=== PATIENT | female | born 1965 | race Caucasian/White ===

== ENCOUNTER 2023-02-05 21:31 | Emergency (ER) | payer OTHER, SELFPAY ==
--- NOTE | ~2023-02-05 | US_ITS ---
EXAMINATION: US VENOUS ULTRASOUND WITH DOPPLER LOWER EXTREMITY, LEFT CLINICAL INFORMATION: Popliteal Lau's cyst. COMPARISON: None available. TECHNIQUE: Ultrasound of the deep veins is performed from the hip to the calf with compression sonography and color and pulse Doppler assessment. Spectral analysis with color-flow imaging is performed. FINDINGS: There is normal venous compression and respiratory variation and augmented flow. The visualized common femoral vein, superficial femoral vein, profunda femoral vein, popliteal vein, and the trifurcation region shows no evidence of deep venous thrombosis. Small popliteal cyst measuring 1.7 x 0.6 x 1.5 cm. If the patient's symptoms persist, followup ultrasound in 5 days 7 days might be of value to exclude proximal propagation from a non-visualized calf vein. US/US venous duplex LE LT IMPRESSION: No DVT demonstrated in the left lower extremity. Small popliteal cyst.
--- NOTE | ~2023-02-05 | XR_ITS ---
EXAMINATION: XR KNEE, LEFT CLINICAL INFORMATION: Pain COMPARISON: None available. TECHNIQUE: Four views of the left knee. FINDINGS: Bones and soft tissues are normal. No fracture or joint effusion. Alignment is anatomic. Joint spaces are well maintained. No abnormal soft tissue calcification. Varicose veins throughout the soft tissues/subcutaneous fat. XR/XR knee LT 4V IMPRESSION: Normal left knee.
[2023-02-05 21:53] VITALS: BP 257/162; PULSE 89; RESP 20; TEMP 35.8; O2SAT 97; BMI 35.5
[2023-02-05 23:43] VITALS: RESP 17; TEMP 36.7
--- NOTE | 2023-02-05 23:49 | PC.NURSE ---
pt refusing repeat blood pressure. pt states i don't care what the blood pressure reading says i know its high because im in pain and it hurts like hell when it squeezes my arm pt telling this RN it is high every time i come to the ER pt yelling becoming agitated with staff for trying to recheck her BP. provider aware
--- NOTE | 2023-02-06 00:08 | ED_ITS ---
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 feels pain in the back of the knee in the popliteal area does have varicose veins no history of DVT on arrival patient's blood pressure was 257/162 patient refusing any medication or further evaluation knowing the risk Related Data Previous Rx's Medication Instructions Recorded amlodipine 10 mg tablet (Norvasc) 10 mg PO DAILY #90 tabs 02/06/23 ibuprofen 600 mg tablet 600 mg PO Q6H PRN fever or pain 02/06/23 #30 tabs lisinopril 20 1 tab PO DAILY #90 tabs 02/06/23 mg-hydrochlorothiazide 12.5 mg tablet (Zestoretic) Allergies Allergy/AdvReac Type Severity Reaction Status Date / Time erythromycin base Allergy Rash Verified 02/05/23 21:59 Review of Systems Review of Systems: Yes all other systems are reviewed and are negative [facility] Past Medical History Medical History (Updated 02/06/23 @ 02:00 by Mal Cuellar MD) Hypertension Social History Social History Advance Directives: No Advance Directives Information Provided: No Physical Exam Vital Signs: Vital Signs: Last Vital Signs Temp 98.1 F 02/05/23 23:43 Pulse 94 02/06/23 01:03 Resp 20 02/06/23 01:03 BP 250/160 H 02/06/23 01:03 Pulse Ox 97 02/05/23 21:53 O2 Del Method Room Air 02/05/23 21:53 BMI result Body Mass Index 35.5 Appearance: Alert. Oriented X3. No acute distress. ENT: Pharynx normal. Oral Mucosa moist Neck: Normal inspection. Neck supple. CVS: Normal heart rate and rhythm. Pulses normal. Respiratory: No respiratory distress. Equal air entry bilateral, Abdomen: Soft and nontender. Bowel sounds are present, Skin: Skin warm and dry. Normal skin color. Normal skin turgor. Extremities: No lower extremity edema. No calf tenderness tenderness in the popliteal area with fullness? Popliteal cyst Neuro: Oriented X 3. No motor deficit. Medications Administered Discontinued Medications Generic Name Dose Route Start Last Admin Trade Name Christy PRN Reason Stop Dose Admin Lisinopril 20 mg 02/06/23 01:07 02/06/23 01:43 Lisinopril 20 Mg Tablet PO 02/06/23 01:08 20 mg ONCE ONE Administration Protocol Nitroglycerin 1 inch 02/06/23 01:07 02/06/23 01:43 Nitroglycerin 2 % Oint 1 Gm Packet TRANSDERMA 02/06/23 01:08 1 inch ONCE ONE Administration Medical Decision Making Medical Decision Making MDM Narrative: Patient with accelerated hypertension with history of hypertension patient refusing any IV medication of blood draw at this time asking only for p.o. medications for. Patient was given lisinopril and nitropaste was applied. Will discharge patient home on lisinopril/HCTZ along with amlodipine patient Doppler of the left leg is negative for DVT showed base small Lau cyst Discharge Plan Discharge Clinical Impression: Lau's cyst of knee, Hypertension, uncontrolled Patient Disposition: Home, Self-Care Instructions: Bakers Cyst (ED), Chronic Hypertension (ED) Additional Instructions: Decrease salt intake Samm wrap for left knee pain Ibuprofen for pain Start taking blood pressure medication as prescribed and follow with PCP Normal blood pressure should be less than 135/85 See your PCP next week Prescriptions: New lisinopril-hydrochlorothiazide [Zestoretic] 20-12.5 mg tablet 1 tab PO DAILY Qty: 90 3RF amlodipine [Norvasc] 10 mg tablet 10 mg PO DAILY Qty: 90 3RF ibuprofen 600 mg tablet 600 mg PO Q6H PRN (Reason: fever or pain) Qty: 30 0RF
[2023-02-06 01:03] VITALS: BP 250/160; PULSE 94; RESP 20
--- NOTE | 2023-02-06 01:05 | PC.NURSE ---
Pt allowing this RN to check her BP @ this time. Pt has been refusing to have her BP checked since Triage, states it is painful and causes her anxiety. MD aware of elevated BP reading. Pt willing to take something for her BP @ this time. MD aware, plan for Nitro and Lisinopril.
[2023-02-06] MEDS: Nitroglycerin 2 % Oint 1 GM Packet 1 INCH TRANSDERMA (01:43)
[2023-02-06] MEDS: lisinopriL 20 MG TABLET PO (01:43)
[2023-02-06] MEDS: Ibuprofen 600 MG TABLET PO (02:25)
[2023-02-06] MEDS: amLODIPine Besylate 10 MG TABLET PO (02:25)
[2023-02-06 03:10] VITALS: BP 226/151
[2023-02-06 03:51] VITALS: BP 194/133
--- NOTE | 2023-02-06 04:15 | PC.NURSE ---
pt technically leaving against medical advice since BP still high at time of discharge. pt BP down to 194/133. pt sating i already took three blood pressure medications, how longer do they want to keep me here to monitor this RN and MD explained that it is ideal to get patient's blood pressure below 180 diastolic before she can safely be discharged home. pt educated on risks of leaving [facility] and high blood pressures. verbalizes understanding. pt refuses to sign AMA forms at time of discharge. pt stating she will warp picker blood pressure medications from pharmacy, will follow up with a primary care doctor as soon as possible, and will call orthopedics in the AM regarding her knee pain.
== END 2023-02-06 04:19 | disposition left against medical advice (07) ==
PROVIDERS: Emergency Provider Internal Medicine
DX: M71.22 Synovial cyst of popliteal space [Baker], left knee (principal); M25.562 Pain in left knee; I10 Essential (primary) hypertension
CPT/HCPCS: 73564; 93971; 99283; 99284

== ENCOUNTER 2023-02-21 13:09 | Outpatient (REF) | payer OTHER, SELFPAY ==
--- NOTE | ~2023-02-21 | XR_ITS ---
EXAMINATION: XR KNEE, LEFT CLINICAL INFORMATION: Effusion left knee. COMPARISON: X-ray left knee 02/05/2023. TECHNIQUE: Three views of the left knee. FINDINGS: No acute fractures or malalignment. Mild joint space narrowing and subcortical sclerosis of the medial compartment. No erosions or chondrocalcinosis. Small joint effusion, new compared to 02/05/2023. XR/XR knee LT 3V IMPRESSION: 1. No acute fractures or malalignment. 2. Mild degenerative osteoarthritis of the medial compartment. 3. Small joint effusion.
== END 2023-02-21 13:10 | disposition home or self-care (01) ==
LOC: HO.HMGCX 13:09
PROVIDERS: Visit Provider Physician Assistant
DX: M25.462 Effusion, left knee (principal)
CPT/HCPCS: 73562

== ENCOUNTER 2023-03-06 | Outpatient (REF) | payer OTHER, SELFPAY ==
--- NOTE | ~2023-03-06 | XR_ITS ---
EXAMINATION: XR KNEE, AP STANDING VIEW OF BOTH KNEES AND SUNRISE AND LATERAL VIEWS OF THE LEFT KNEE CLINICAL INFORMATION: Pain COMPARISON: 02/21/2023 and February 05, 2023 TECHNIQUE: AP standing view of both knees and lateral and patellar view of the left knee. FINDINGS: No acute fracture or dislocation is evident. There is mild narrowing of the medial joint space compartments bilaterally. There is mild spurring undersurface of the patella at the patellofemoral joint. No effusion is identified. No significant change from prior study. XR/XR knee LT 2V IMPRESSION: 1. No fracture or effusion identified. 2. Mild degenerative change medial joint space compartment and patellofemoral joint of the left knee. 3. Mild degenerative change medial joint space compartment of the right knee.
--- NOTE | ~2023-03-06 | XR_ITS ---
EXAMINATION: XR KNEE, AP STANDING VIEW OF BOTH KNEES AND SUNRISE AND LATERAL VIEWS OF THE LEFT KNEE CLINICAL INFORMATION: Pain COMPARISON: 02/21/2023 and February 05, 2023 TECHNIQUE: AP standing view of both knees and lateral and patellar view of the left knee. FINDINGS: No acute fracture or dislocation is evident. There is mild narrowing of the medial joint space compartments bilaterally. There is mild spurring undersurface of the patella at the patellofemoral joint. No effusion is identified. No significant change from prior study. XR/XR knee standing BI IMPRESSION: 1. No fracture or effusion identified. 2. Mild degenerative change medial joint space compartment and patellofemoral joint of the left knee. 3. Mild degenerative change medial joint space compartment of the right knee.
== END 2023-03-06 00:01 | disposition home or self-care (01) ==
LOC: HO.HOSX
PROVIDERS: Visit Provider Orthopaedic Surgery
DX: M25.562 Pain in left knee (principal); M25.462 Effusion, left knee
CPT/HCPCS: 20610; 73560; 73565; 99202; J1100

== ENCOUNTER 2023-03-15 15:39 | Outpatient (REF) | payer OTHER, SELFPAY ==
--- NOTE | ~2023-03-15 | MR_ITS ---
EXAMINATION: MR KNEE WITHOUT CONTRAST, LEFT CLINICAL INFORMATION: Left knee effusion COMPARISON: Radiographs 03/06/2023 TECHNIQUE: MRI of the knee without contrast was performed using routine sequences on a high-field scanner. FINDINGS: MENISCI: Medial Meniscus: Complete tear/avulsion at the root of the posterior horn with approximately 5 mm of medial displacement and slight extrusion of the meniscal body. Lateral Meniscus: Intact LIGAMENTS: Cruciate: Mucoid degeneration of the ACL with reactive marrow changes and cyst formation at the tibial insertion. Collateral: Intact. Edema extending along the MCL is likely related to medial compartment pathology. EXTENSOR MECHANISM: Intact ARTICULAR CARTILAGE/BONE: Patellofemoral Compartment: Cartilage thinning and surface irregularity of the central and medial trochlea and minimal cartilage thinning of the central patella. Medial Compartment: There is a subchondral fracture involving the anterior aspect of the weightbearing femoral condyle with surrounding marrow edema which given the depth of the trabecular involvement suggests this is posttraumatic. Similar-appearing linear longitudinal low T1 signal intensity with surrounding marrow edema is present involving the central and anterior tibia although this is more subchondral in location which is more typical of an insufficiency fracture (spontaneous osteonecrosis of the knee-SONK). Lateral Compartment: Normal JOINT FLUID AND BURSAE: Small joint effusion and a trace Lau's cyst which may have ruptured, with fluid extending distally superficial to the medial gastrocnemius muscle. There are prominent varicosities in the anterior, lateral and medial soft tissues. MR/MR knee LT wo con IMPRESSION: 1. Complete tear/avulsion at the root of the posterior horn of the medial meniscus with medial displacement and slight extrusion of the meniscal body. 2. Nondisplaced impaction and/or insufficiency fractures of the medial femoral condyle and medial tibial. 3. Mucoid degeneration of the ACL. 4. Mild patellofemoral compartment osteoarthritis. Small joint effusion and trace Lau's cyst which may have recently ruptured.
== END 2023-03-15 15:40 | disposition home or self-care (01) ==
LOC: HO.MRI 15:39
PROVIDERS: Visit Provider Orthopaedic Surgery
DX: M25.462 Effusion, left knee (principal)
CPT/HCPCS: 73721

== ENCOUNTER 2023-04-06 08:35 | Outpatient (AMB) | payer OTHER, SELFPAY ==
--- NOTE | 2023-04-06 08:41 | MHC.OFFVIS ---
Intake Vital Signs 04/06/23 08:41 Height 5 ft Intake Visit Reasons: OV-Left knee MRI review Intake Note: Chaitanya is a 57 year old female who presents today for an MRI follow up of her left knee. Patient reports that the left knee is feeling worse. Allergies erythromycin base Allergy (Verified 04/06/23 08:42) Rash HPI OV-Left knee MRI review HPI Details Chaitanya is a 57 year old woman who presents for an MRI review of her left knee. She is S/P steroid injection on 03/06/23, which she says gave her little to no relief. She says her knee pain has worsened since her last appointment, and she continues to have pain with activity & at night. Twisting activities are the most painful for her. She localizes her pain to the anterior and medial aspect of her knee. She says she also has been feeling some numbness in the anteromedial aspect of her altman. She says she has developed some hip pain recently, which she says is from her modified gait. She has not been active since her pain began, and spends most of her time sitting at home. 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 She did trip and fall ~3 months ago and says she twisted her knee, along with some tripping incidents at work, but denies any pain at that time. She was seen in the ED on with pain in the posterior aspect of her knee, and was told this was from a Alu's cyst. She says her knee swells at the end of the day, up to 3x the size of her right knee. She has been prescribed Naproxen & Prednisone for her pain & swelling, and says the NSAIDs helped her somewhat but the Prednisone did nothing for her pain. She denies any PT. 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 Review of Systems Const All systems reviewed & are unremarkable except as noted in HPI and below Physical Exam Const General: no acute distress and alert Orientation/consciousness: patient oriented x3 Neuro General: patient oriented x3 Extrem Other: Left Knee: TTP medial tibial plateau Trace effusion Psych Appearance: grossly normal Affect: normal affect Attitude: cooperative Results Reviewed Results Reviewed: 04/06/23 09:15 Lidocaine HCl 2 % MPF [Xylocaine 2 % MPF] 5 ml .ROUTE .STK-MED ONE 04/06/23 09:16 BUPivacaine MPF 0.25 % [Sensorcaine-MPF 0.25% 10 ML] 10 ml .ROUTE .STK-MED ONE dexAMETHasone sod phosphate [Decadron] 4 mg .ROUTE .STK-MED ONE I personally reviewed relevant MR images 1.? Complete tear/avulsion at the root of the posterior horn of the medial meniscus with medial displacement and slight extrusion of the meniscal body. 2.? Nondisplaced impaction and/or insufficiency fractures of the medial femoral condyle and medial tibial. 3.? Mucoid degeneration of the ACL. 4.? Mild patellofemoral compartment osteoarthritis. Small joint effusion and trace Lau's cyst which may have recently ruptured. I personally reviewed relevant radiographs. Mild degenerative osteoarthritis of the medial compartment. Assessment & Plan Assessment & Plan (1) Osteonecrosis of left knee region: Code(s): M87.9 - Osteonecrosis, unspecified Plan: This is a 57 year old woman with spontaneous osteonecrosis of the left knee, with a complete MMT and an insufficiency fracture of the medial femoral condyle. She has pain with daily activity, localized to the anterior & medial aspects, and is worse with twisting activities and when trying to sleep. She has been limited in her ADLs and activity due to her pain, and has reduced her hours to part-time. She found some relief from NSAIDs, and little to no relief from her recent steroid injection on 03/06/23. I had a long discussion with her concerning her diagnosis and treatment options. Given her arthritis she is not a surgical candidate at this time, though she may benefit from a TKA in the future. I recommend PT, NSAIDs, and RICE. I injected her left knee today, which she tolerated well, ordered PT for strengthening and normalizing gait mechanics, and prescribed a topical NSAID cream. She will follow up in 6 weeks. (2) Tear of medial meniscus of left knee: Code(s): S83.242A - Other tear of medial meniscus, current injury, left knee, initial encounter (3) Effusion of left knee: Code(s): M25.462 - Effusion, left knee (4) Insufficiency fracture of medial femoral condyle: Code(s): M84.453A - Pathological fracture, unspecified femur, initial encounter for fracture Plan Scribed for Lucas Mathews MD by Chan Patel, medical professionals, on 04/06/23 at 9:10 AM, EST. Orders: Orders PT Evaluation and Treatment 04/06/23 M84.40XA - Pathological fracture, unspecified site, initial encounter for fracture, S83.242A - Other tear of medial meniscus, current injury, left knee, initial encounter Coding Level of Care Code Est Pt Level 4 (75531) Diagnoses Osteonecrosis of left knee region M87.9 Tear of medial meniscus of left knee S83.242A Effusion of left knee M25.462 Insufficiency fracture of medial femoral condyle M84.453A
== END 2023-04-06 09:43 | disposition home or self-care (01) ==
PROVIDERS: Visit Provider Orthopaedic Surgery
DX: S83.242A Other tear of medial meniscus, current injury, left knee, initial encounter (principal); M25.462 Effusion, left knee; S72.435A Nondisplaced fracture of medial condyle of left femur, initial encounter for closed fracture
CPT/HCPCS: 20610; 99214

== ENCOUNTER → 2023-04-06 08:35 | Outpatient (BNVA) | payer OTHER, SELFPAY | PROVIDERS: Visit Provider Orthopaedic Surgery | DX: M87.9 Osteonecrosis, unspecified (principal); S83.242A Other tear of medial meniscus, current injury, left knee, initial encounter; M84.453A Pathological fracture, unspecified femur, initial encounter for fracture; M25.462 Effusion, left knee | CPT/HCPCS: 20610; 99212; J1100 ==

== ENCOUNTER 2023-05-04 08:50 | Outpatient (AMB) | payer SELFPAY ==
--- NOTE | 2023-05-04 08:54 | A.OFFVIS_ITS ---
Intake Vital Signs 05/04/23 09:00 Height 5 ft Intake Visit Reasons: OV-Left knee Osteonecrosis Intake Note: Chaitanya is a 57 year old female who presents today for a follow up of her left knee osetonecrosis. Injection was done on 04/06/23. Patient reports that this injection has been helpful and she recently filled her compound cream but has not yes started it. Allergies erythromycin base Allergy (Verified 05/04/23 09:01) Rash HPI OV-Left knee Osteonecrosis HPI Details Chaitanya Thakur is a 57-year-old female who presents today in the clinic for a follow-up of left knee osteonecrosis. The patient was last seen about six weeks ago with the insufficiency fracture and SONK. She feels much better than prior. Has been able to sleep and with good function. We reviewed the x-ray results with the patient. The result findings were as same as the last imaging. The patient denies any pain with weather changes in the past. She started physical therapy on 05/03/23. She will visit physical therapy twice a week for four weeks. She was on vacation for past three weeks and states her pain was stable. She had two steroid injections in the past which provided good relief. Her last steroid injection was on 03/06/23. She is interested in repeating the injection again. She states that she resumed her job this week and is doing well without any pain. 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 Physical Exam Const General: no acute distress, alert and awake Orientation/consciousness: patient oriented x3 HEENT Head: Yes normocephalic and Yes atraumatic Eyes EOM: EOMs intact bilaterally Resp Effort & Inspection: normal respiratory effort and able to speak in complete sentences Cardio Jugular venous distension: no JVD Skin General skin exam: turgor normal Rashes: no rashes Neuro General: patient oriented x3 Extrem Other: Mild medial compartment TTP left knee Psych Appearance: grossly normal Affect: normal affect Attitude: cooperative Results Reviewed Results Reviewed: I personally reviewed relevant radiographs. No changes in right knee radiographs. Persistent medial compartment abnormality c/w focal chondral injury MFC Assessment & Plan Assessment & Plan (1) Insufficiency fracture of medial femoral condyle: Code(s): M84.453A - Pathological fracture, unspecified femur, initial encounter for fracture Plan: Chaitanya is doing much better. Minimal pain. May follow up in 2-3 months as needed Plan Repeat x-rays were performed today in the office and results were discussed with the patient. The patient will continue physical therapy. The patient will follow up as needed. Scribed for Dr. Lucas Mathews by Lokesh Monet senior medical transcriptionist, on 05/04/2023. I, Dr. Lucas Mathews, have personally reviewed and agree with the information entered by the scribe. Orders: Orders XR knee LT 2V Today M25.569 - Pain in unspecified knee XR knee standing BI Today M25.569 - Pain in unspecified knee Coding Level of Care Code Est Pt Level 3 (26615) Diagnoses Insufficiency fracture of medial femoral condyle M84.453A
== END 2023-05-04 09:11 | disposition home or self-care (01) ==
PROVIDERS: Visit Provider Orthopaedic Surgery
DX: M84.453A Pathological fracture, unspecified femur, initial encounter for fracture (principal)
CPT/HCPCS: 99213

== ENCOUNTER 2023-05-04 10:20 | Outpatient (REF) | payer OTHER, SELFPAY ==
--- NOTE | ~2023-05-04 | XR_ITS ---
EXAMINATION: XR knee LT 2V, XR knee standing BI CLINICAL INFORMATION: Reason for Exam M25.569 - Pain in unspecified knee COMPARISON: Knee radiographs 04/05/2023 TECHNIQUE: One view of the bilateral knees. 2 views of the left knee. FINDINGS: RIGHT KNEE: No acute fracture or dislocation. Mild to moderate degenerative changes of the knee with borderline loss of medial compartment joint space with degenerative spurring. Soft tissues are unremarkable. LEFT KNEE: No acute fracture or dislocation. Mild to moderate degenerative changes of the knee involving the medial compartment with borderline loss of joint space and degenerative spurring along the medial and patellofemoral compartment. Small suprapatellar joint effusion. Soft tissues are unremarkable. XR/XR knee standing BI IMPRESSION: * No acute osseous abnormality. * [id number] degenerative changes of the knees. * Small left suprapatellar joint effusion.
--- NOTE | ~2023-05-04 | XR_ITS ---
EXAMINATION: XR knee LT 2V, XR knee standing BI CLINICAL INFORMATION: Reason for Exam M25.569 - Pain in unspecified knee COMPARISON: Knee radiographs 04/05/2023 TECHNIQUE: One view of the bilateral knees. 2 views of the left knee. FINDINGS: RIGHT KNEE: No acute fracture or dislocation. Mild to moderate degenerative changes of the knee with borderline loss of medial compartment joint space with degenerative spurring. Soft tissues are unremarkable. LEFT KNEE: No acute fracture or dislocation. Mild to moderate degenerative changes of the knee involving the medial compartment with borderline loss of joint space and degenerative spurring along the medial and patellofemoral compartment. Small suprapatellar joint effusion. Soft tissues are unremarkable. XR/XR knee LT 2V IMPRESSION: * No acute osseous abnormality. * [id number] degenerative changes of the knees. * Small left suprapatellar joint effusion.
== END 2023-05-04 10:21 | disposition home or self-care (01) ==
LOC: HO.HOSX 10:20
PROVIDERS: Visit Provider Orthopaedic Surgery
DX: M84.453D Pathological fracture, unspecified femur, subsequent encounter for fracture with routine healing (principal)
CPT/HCPCS: 73560; 73565; 99212

== ENCOUNTER 2023-06-22 08:00 | Outpatient (RCR) | payer OTHER, SELFPAY ==
--- NOTE | 2023-05-03 10:55 | MHC.PT.EP ---
[facility] [place] Office [place] Office [place] Office [address] Anna Cardoso [address] [phone] F: [phone] F: [phone] F: [phone] F: [phone] Physical Therapy Plan of Care Date of Evaluation: Date of Surgery: Diagnosis: tear of medial meniscus of left knee (RL) Assessment: pt is a 57 y/o female presenting to physical therapy w/ referring diagnosis of tear of medial meniscus of left knee. Impairments include pain, decreased range of motion, decreased strength, impaired functional mobility, impaired postural awareness, and altered ambulation mechanics. pt is a fair candidate for skilled PT due to age, potential remediation of impairments, typical disease/condition progression and prognosis, comorbidities, and motivation. pt would benefit from skilled PT intervention to provide a tailored strengthening and stretching exercise program, functional training, gait training, postural re-training, neuromuscular re-education, modalities as needed for pain, equipment safety demonstration. Frequency and Duration: The patient will be seen 2x/wk for 4 wks Short Term Goals: pt will be I w/ HEP to promote self-management of condition. pt will improve L knee flexion by at least 10 degrees to promote ease in stairs and transfers. Family Resource Management Specialist Goals: pt will report a statistically significant improvement in self-reported outcome measure, LEFI, to promote return to PLOF. pt will improve L knee extension strength to at least 4+/5 to promote ease in navigating stairs to access basement for laundry. Treatment Plan: Modalities to reduce pain, spasms and effusion. Manual therapy to restore motion and function. Therapeutic exercise to improve strength and flexibility. Neuromuscular re-education for posture and balance. Therapeutic activities to return to functional activities of daily living. Electronically signed by: Hannah Anderson PT, DPT Please sign and return to therapist. Thank you for your referral.
--- NOTE | 2023-07-14 10:20 | MHC.PT.DC ---
[facility] [place] Office [place] Office [place] Office [address] Anna Cardoso 140 [facility] [phone] F: [phone] F: [phone] F: [phone] F: [phone] Physical Therapy Discharge Report Diagnosis: tear of medial meniscus of left knee (RL) Date of Surgery: Date of Evaluation: 05/03/23 Date of Discharge: 07/14/23 Treatments to Date: 11 Cancellations to Date: 3 No Shows to Date: 0 Discharge Status: Recommend MD Follow-up Discharge Summary: The patient overall was doing really well and progressing with physical therapy intervention until she had a set back and moderate-severe exacerbation of knee pain. She was trialed with approximately 6 doses of iontophoresis with dexamethasone which she responded well to and was reporting less pain. She cancelled her last scheduled visit and has not followed-up with anymore in nearly three weeks. Her current status is unknown. She is discharged from this physical therapy plan of care. Electronically signed by: Hannah Anderson PT, DPT Please sign and return to therapist. Thank you for your referral.
== END 2023-07-14 10:20 | disposition home or self-care (01) ==
LOC: HO.PT 08:00
PROVIDERS: Visit Provider Orthopaedic Surgery
DX: S83.242A Other tear of medial meniscus, current injury, left knee, initial encounter (principal)
CPT/HCPCS: 97033; 97110; 97140; 97161

== ENCOUNTER 2024-11-15 09:44 | Emergency (ER) | payer OTHER, SELFPAY ==
--- NOTE | ~2024-11-15 | CT_ITS ---
EXAMINATION: CT HEAD WITHOUT CONTRAST CLINICAL INFORMATION: fall with head strike, dizzy COMPARISON: None available. TECHNIQUE: Contiguous axial imaging was performed from the skull base to vertex without intravenous administration of contrast. This CT examination was performed using dose optimization techniques as appropriate, variously including the following: *Automated exposure control *Adjustment of mA and/or kV according to patient size (this includes techniques or standardized protocols for targeted exams where dose is matched to indication/reason for exam; i.e. extremities or head) *Use of iterative reconstruction technique DLP: 595 mGy-cm FINDINGS: Bony calvarium is intact. Skull base is intact. Soft tissue contusion superior right parietal soft tissue scalp. No acute intracranial hemorrhage, mass effect, midline shift, hydrocephalus or herniation. Hitchcock-white matter differentiation is normal. Old lacunar infarcts in the basal ganglia. Posterior cranial fossa contents demonstrated no acute intracranial hemorrhage or mass effect. Sellar/suprasellar region is normal. Craniocervical junction is intact. Calcified plaques in the cavernous and supracavernous segments both ICA.. Mucosal thickening, maxillary sinuses without air-fluid levels. Tympanic cavities and mastoid cells are aerated. No focal hematoma in the intraconal or extraconal compartments of the orbits. CT/CT head/brain wo IV con IMPRESSION: Soft tissue contusion superior right parietal soft tissue scalp. No acute fracture, bony calvarium. No acute intracranial hemorrhage. Small vessel occlusive disease. Electronically signed by: Garrett Vilchis MD 11/15/2024 10:49 AM [facility]
--- NOTE | ~2024-11-15 | CT_ITS ---
EXAMINATION: CT CERVICAL SPINE WITHOUT CONTRAST CLINICAL INFORMATION: Fall with head strike. Dizziness. Neck pain. COMPARISON: None available. TECHNIQUE: Spiral CT imaging of the cervical spine performed in axial plane without contrast. Multiplanar reformatted images were constructed from the axial data set. This CT examination was performed using dose optimization techniques as appropriate, variously including the following: *Automated exposure control *Adjustment of mA and/or kV according to patient size (this includes techniques or standardized protocols for targeted exams where dose is matched to indication/reason for exam; i.e. extremities or head) *Use of iterative reconstruction technique FINDINGS: CORONAL ALIGNMENT: -Minimal levoconvex scoliosis. SAGITTAL ALIGNMENT: -Normal lordosis. -There is a 2 mm degenerative retrolisthesis of C4 on C5. Alignment is otherwise anatomic. C1-C2 AND CRANIOCERVICAL JUNCTION: -Intact and aligned normally. There are mild degenerative changes at the anterior atlantoaxial articulation. VERTEBRAL BODIES AND FACETS: -There is no fracture, traumatic subluxation, compression deformity, or suspicious bone lesion. There is mild diffuse osteopenia. -There is normal facet alignment and appearance. DISCS: -[id number] localized disc space narrowing at C4-5. Minimal C5-6 and C6-7 narrowing. CENTRAL CANAL: -No evidence of high-grade central canal narrowing or large disc herniation allowing for modality limitations. PREVERTEBRAL AND PARAVERTEBRAL SOFT TISSUES: -No soft tissue swelling or edema. -Mild to moderate left greater than right carotid bulb calcifications. -Normal thyroid. LUNG APICES: -Essentially clear bilaterally. No pneumothorax CT/CT cervical spine wo IV con IMPRESSION: 1. No CT evidence of acute cervical spine fracture or injury. 2. Degenerative disc changes focally at C4-5. Electronically signed by: Sergio Lynch MD 11/15/2024 11:02 AM [facility] [place]
[2024-11-15 09:51] VITALS: BP 198/79; PULSE 65; RESP 20; TEMP 36; O2SAT 100; BMI 38.6
--- NOTE | 2024-11-15 09:58 | ECG_ITS ---
Test Reason : SYNCOPE Blood Pressure : */* mmHG Vent. Rate : 63 BPM Atrial Rate : 63 BPM P-R Int : 154 ms QRS Dur : 86 ms QT Int : 428 ms P-R-T Axes : 56 13 71 degrees QTcB Int : 437 ms Normal sinus rhythm Normal ECG When compared with ECG of 30-Nov-2005 17:59, No significant change was found Referred By: Dayna Heaton Electronically Signed By: Joselo Rdz
[2024-11-15 11:16] LABS: MANUAL DIFF FLAG NO
[2024-11-15 11:18] LABS: Basophils Percent Auto 0.3 % (0-2); Eosinophils Absolute Auto 0.1 X10*3/uL (0.0-0.4); Eosinophils Percent Auto 1.3 % (0-4); Hemoglobin 12.6 g/dl (12.0-16.0); Imm Gran Abs Auto 0.04 X10*3/uL (0.00-0.03); Imm Gran Pct Auto 0.6 % (0.0-0.4); Lymphocytes Absolute Auto 0.8 X10*3/uL (1.2-4.9); Lymphocytes Percent Auto 10.7 % (20-40); Mean Corpuscular HGB Conc 34.1 g/dl (31.0-35.0); Mean Corpuscular Hemoglobin 31.1 pg (27.0-33.0); Mean Corpuscular Volume 91.4 fL (80.0-98.0); Mean Platelet Volume 8.4 fL (9.4-12.3); Monocytes Absolute Auto 0.5 X10*3/uL (0.1-1.2); Monocytes Percent Auto 6.9 % (2-11); Neutrophils Absolute Auto 5.7 x10*3/uL (2.0-8.3); Neutrophils Percent Auto 80.2 % (45-73); Platelet Count 244 X10*3/uL (160-400); Red Blood Count 4.05 X10*6/uL (4.20-5.50); Red Cell Distribution Width 12.5 % (11.0-16.0); White Blood Count 7.1 X10*3/uL (4.8-10.8)
[2024-11-15 11:23] LABS: INTERNATIONAL NORM RATIO 0.9 (0.9-1.1); Prothrombin Time 10.3 SEC (10.9-12.4)
[2024-11-15 11:38] LABS: Alanine Aminotransferase 14 U/L (0-31); Albumin Level 4.2 g/dL (3.5-5.0); Alkaline Phosphatase 82 U/L (39-117); Anion Gap 11 (12-20); Aspartate Amino Transferase 22 U/L (5-31); Bilirubin Total 0.5 mg/dL (0.0-1.0); Blood Urea Nitrogen 26 mg/dL (9-16); Calcium 9.2 mg/dL (8.4-10.2); Carbon Dioxide 22 mmol/L (22-29); Chloride 111 mmol/L (96-108); Creatinine Clr Calc Pharmacy 55.5; Estimated Glomerular Filt Rate 53; Glucose Random 130 mg/dL (60-115); Potassium 4.3 mmol/L (3.3-5.1); Sodium 140 mmol/L (135-145); Total Protein 7.6 g/dL (6.5-8.0)
[2024-11-15 11:40] LABS: Troponin-I High Sensitivity 5.4 ng/L (<3.5-17.0)
[2024-11-15 15:00] LABS: Troponin-I High Sensitivity 5.3 ng/L (<3.5-17.0)
[2024-11-15 19:14] VITALS: BP 217/93; PULSE 84; RESP 17; TEMP 36.6; O2SAT 99
--- NOTE | 2024-11-15 19:17 | ED_ITS ---
HPI - Fall General Chief Complaint: Fall Stated Complaint: fall head inj Time Seen by Provider: 11/15/24 20:46 Source: patient Limitations: no limitations History of Present Illness ED Provider: Crystal Feliz PA-C HPI Narrative: 59-year-old female with a history of hypertension, morbid obesity, chronic left knee pain, presents after a mechanical fall. Patient states she slipped, falling backwards striking her head. Patient feels lightheaded and dizzy since the fall, there was no loss consciousness, the patient does not use a blood thinner. She denies neck pain, headache, nausea, vomiting. Patient was noted to be hypertensive in the emergency department, she admits she did not take her medications today. They were given at triage. Related Data Previous Rx's ?Medication ?Instructions ?Recorded amlodipine 10 mg tablet (Norvasc) 10 mg PO DAILY #90 tabs 02/06/23 ibuprofen 600 mg tablet 600 mg PO Q6H PRN fever or pain 02/06/23 #30 tabs lisinopril 20 1 tab PO DAILY #90 tabs 02/06/23 mg-hydrochlorothiazide 12.5 mg tablet (Zestoretic) diclofenac sodium 1 % topical gel 2 g topical QID #100 grams 02/24/23 (Arthritis Pain (diclofenac)) Allergies Allergy/AdvReac Type Severity Reaction Status Date / Time erythromycin base Allergy Rash Verified 11/15/24 09:54 Review of Systems 2 Review of Systems: Yes all other systems are reviewed and are negative Constitutional: Constitutional: Denies fatigue, Denies fever(s) and Denies headache(s) ENT: Denies dizziness, Denies headache(s) and Denies neck pain Cardiovascular: Cardiovascular: Denies chest pain and Denies dyspnea Respiratory: Respiratory: Denies cough and Denies dyspnea Gastrointestinal: Gastrointestinal: Denies abdominal pain, Denies nausea and Denies vomiting Musculoskeletal: Musculoskeletal: Denies back pain and Denies neck pain Neurologic: Denies dizziness and Denies headache(s) Endocrine: Endocrine: Denies fatigue [facility] Past Medical History Attestation statement: The following information was validated with the patient. Medical History Hypertension Social History Social History Patient Tobacco Use Status: Never used Tobacco Advance Directives: No Advance Directives Information Provided: No Do you have a plan to hurt others: No Plan Current occupational status: employed Current occupation: [employer] Physical Exam 2 Vital Signs: Vital Signs: Last Vital Signs Temp 97.8 F 11/15/24 19:14 Pulse 61 11/15/24 20:46 Resp 18 11/15/24 20:46 BP 196/76 H 11/15/24 20:46 Pulse Ox 100 11/15/24 20:46 O2 Del Method Room Air 11/15/24 20:46 BMI result Body Mass Index 38.6 Const: Other: Alert, no evidence of head trauma on exam Orientation/consciousness: patient oriented x3 Resp: Effort & Inspection: normal respiratory effort Cardio: Other: Normal peripheral perfusion Skin: Other: Warm dry no rash Neuro: General: patient oriented x3, gait normal, no focal motor deficits and CN's II-XI intact bilaterally Psych: Other: Cooperative, becoming inpatient and hostile due to her wait time Course Course Course Narrative: This is a Rapid Medical Exam performed in triage by Christen Wills PA-C. Full HPI, ROS and PE to be performed by primary ED provider. 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 Denies sx prior to fall. Admits to feeling dizziness/lightheaded after fall PE: no palpable skull deformity, No focal neuro deficits Plan: EKG, labs, CT head/C-spine 1916--CT head/brain wo IV con IMPRESSION: Soft tissue contusion superior right parietal soft tissue scalp. No acute fracture, bony calvarium. No acute intracranial hemorrhage. Small vessel occlusive disease. CT cervical spine wo IV con IMPRESSION: 1. No CT evidence of acute cervical spine fracture or injury. 2. Degenerative disc changes focally at C4-5. -labs reassuring, trop x2 negative -HTNsive on re-evaluation > states is due for her BP meds >> will give home dose of Labetalol 200mg & reassess Medications Administered Discontinued Medications Generic Name Dose Route Start Last Admin Trade Name Freq PRN Reason Stop Dose Admin Labetalol HCl 200 mg 11/15/24 19:19 11/15/24 19:23 Labetalol Hcl 200 Mg Tablet PO 11/15/24 19:20 200 mg ONCE ONE Administration Protocol Labetalol HCl 200 mg 11/15/24 19:24 11/15/24 19:28 Labetalol Hcl 200 Mg Tablet PO 11/15/24 19:25 200 mg ONCE ONE Administration Protocol Medical Decision Making Medical Decision Making [facility] Narrative: 59-year-old female with a history of hypertension, morbid obesity, chronic left knee pain, presents after a mechanical fall. Patient states she slipped, falling backwards striking her head. Patient feels lightheaded and dizzy since the fall, there was no loss consciousness, the patient does not use a blood thinner. She denies neck pain, headache, nausea, vomiting. Patient was noted to be hypertensive in the emergency department, she admits she did not take her medications today. They were given at triage. No chronic issues History: Per patient I have considered the following differential diagnoses: Intracranial hemorrhage, cervical spine injury, contusion, musculoskeletal strain Plan: Screening labs and CT of the brain and cervical spine were obtained from triage, everything is normal. The patient is walking out with the benefit of her discharge instructions now that she knows her scans are negative I have independently reviewed the following tests: Labs: No leukocytosis, not anemic, no electrolyte abnormality CT brain: RDER #: [id number] CT/CT head/brain wo IV con IMPRESSION: Soft tissue contusion superior right parietal soft tissue scalp. No acute fracture, bony calvarium. No acute intracranial hemorrhage. Small vessel occlusive disease. Electronically signed by: Garrett Vilchis MD 11/15/2024 10:49 AM [facility] CT cervical spine: CT/CT cervical spine wo IV con IMPRESSION: 1. No CT evidence of acute cervical spine fracture or injury. 2. Degenerative disc changes focally at C4-5. Lab Data 11/15/24 10:59 11/15/24 10:59 Labs: Lab Results 11/15/24 11/15/24 Range/Units 10:59 14:27 WBC 7.1 (4.8-10.8) X10*3/uL RBC 4.05 L (4.20-5.50) X10*6/uL Hgb 12.6 (12.0-16.0) g/dl Hct 37.0 (37.0-47.0) % MCV 91.4 (80.0-98.0) fL MCH 31.1 (27.0-33.0) pg MCHC 34.1 (31.0-35.0) g/dl RDW 12.5 (11.0-16.0) % Plt Count 244 (160-400) X10*3/uL MPV 8.4 L (9.4-12.3) fL Immature Gran % (Auto) 0.6 H (0.0-0.4) % Neut % (Auto) 80.2 H (45-73) % Lymph % (Auto) 10.7 L (20-40) % [place] % (Auto) 6.9 (2-11) % Eos % (Auto) 1.3 (0-4) % Baso % (Auto) 0.3 (0-2) % Lymph # (Auto) 0.8 L (1.2-4.9) X10*3/uL [place] # (Auto) 0.5 (0.1-1.2) X10*3/uL Eos # (Auto) 0.1 (0.0-0.4) X10*3/uL Baso # (Auto) 0.0 (0.0-0.2) X10*3/uL Abs Immat Gran (auto) 0.04 H (0.00-0.03) X10*3/uL Absolute Neuts (auto) 5.7 (2.0-8.3) x10*3/uL Absolute Nucleated RBC 0.000 (0.0-0.012) X10*3/uL Nucleated RBC % (auto) 0.0 (0.0-0.2) /100WBC PT 10.3 L (10.9-12.4) SEC INR 0.9 (0.9-1.1) Sodium 140 (135-145) mmol/L Potassium 4.3 (3.3-5.1) mmol/L Chloride 111 H (96-108) mmol/L Carbon Dioxide 22 (22-29) mmol/L Anion Gap 11 L (12-20) BUN 26 H (9-16) mg/dL Creatinine 1.06 (0.5-1.4) mg/dL Estim Creat Clear Calc 55.5 Estimated GFR 53 Random Glucose 130 H (60-115) mg/dL Calcium 9.2 (8.4-10.2) mg/dL Total Bilirubin 0.5 (0.0-1.0) mg/dL AST 22 (5-31) U/L ALT 14 (0-31) U/L Alkaline Phosphatase 82 (39-117) U/L Troponin I High Sens 5.4 5.3 (<3.5-17.0) ng/L Total Protein 7.6 (6.5-8.0) g/dL Albumin 4.2 (3.5-5.0) g/dL Discharge Plan Discharge Clinical Impression: Contusion of head Patient Disposition: Home, Self-Care Additional Instructions: Patient left without the benefit of her discharge instructions Prescriptions: No Action lisinopril-hydrochlorothiazide [Zestoretic] 20-12.5 mg tablet 1 tab PO DAILY Qty: 90 3RF amlodipine [Norvasc] 10 mg tablet 10 mg PO DAILY Qty: 90 3RF ibuprofen 600 mg tablet 600 mg PO Q6H PRN (Reason: fever or pain) Qty: 30 0RF diclofenac sodium [Arthritis Pain (diclofenac)] 1 % gel 2 g topical QID Qty: 100 0RF Rx Instructions: apply to single elbow, wrist or hand; for hand includes palm/fingers/back of hand Print Language: Romansh
--- NOTE | 2024-11-15 19:17 | PC.NURSE ---
attempted to get repeat blood pressure in triage, pt unable to tolerate cuff.
[2024-11-15] MEDS: Labetalol HCL 200 MG TABLET PO ×2 (19:23→19:28)
--- OUTSIDE RECORDS SUMMARY | 2024-11-15 20:28 | XMS_ITS | Encounter Summary ---
Author Organization [facility] Address [address] [place] [address] Care Team Providers Care Cash Teller Name Role Phone Adali Carolina MD Primary Care Pr ovider Reason for Visit * Reason Comments Proteinuria Encounter Details Date Type Department Care Team ([facility] st Contact Info) Description 10/23/2024 4:00 PM EST Office Visit Nephrology - [address] [address] Ajay Madrigal MD 100 [facility] [address] [place] [address] CKD stage 3b, GFR 30-44 ml/min ([facility]/HCC) (Primary Dx); Benign hypertension with CKD (chronic kidney disease) stage III ([facility]/HCC); Solitary kidney, acquired Social History Tobacco Use Types Packs/Day Years Used Date Smoking Tobacco: Former Smokeless Tobacco: Never Alcohol Use Standard Drinks/Week Comments Yes 0 (1 standard drink = 0.6 oz pur e alcohol) Comments Unknown Sex and Gender Information Value Date Recorded Sex Assigned at Not on file Legal Sex Female 5:04 AM EST Gender Identity Not on file Sexual Orientation Not on file documented as of this encounter Last Filed Vital Signs Vital Sign Reading Time Taken Comments Blood Pressure 175/75 10/23/2024 4:11 PM EST Pulse 83 10/23/2024 4:11 PM EST Temperature - - Respiratory Rate - - Oxygen Saturation - - Inhaled Oxygen Concentration - - Weight 91.2 kg (201 lb) 10/23/2024 4:11 PM EST Height - - Body Mass Index 39.26 01/11/2024 10:36 AM EDT documented in this encounter Ordered Prescriptions Prescription Sig Dispense Quantity Refills Last Filled Start Date End Date valsartan (DIOVAN) 40 mg tablet Take 1 tablet (40 mg total) by mouth 1 (one) time each day. 90 tablet 3 10/23/2024 10/23/2025 documented in this encounter Progress Notes * Ajay Madrigal MD - 10/23/2024 4:00 PM EST Blaze is a 59 y.o. year old female who presents for follow-up regarding elevated creatinine in the setting of solitary functioning kidney HPI: Patient feels less anxious in the office today On the higher dose of labetalol which she is able to tolerate No other major complaints Background : patient is an anxious female with past medical history hypertension which was diagnosed in 2022, history of right-sided hydronephrosis which was diagnosed last year and was seen by urology. 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 Patient also has obstruction of the left kidney for which she had surgically correction i.e. her ureters were partly removed and reattachedin 2012. Patient tells me that she was seen and had medical attention until 2006 but after that she did not have any lab work until 2022. He also had hyperkalemia in the past Her blood pressure has been on the high side since 2022 for which she is on 2 antihypertensive medications She used to take significant amount of NSAIDs which she stopped taking Denies history of diabetes she has history of hypercholesteremia and was not able to tolerate a statin She was also on hydrochlorothiazide which was discontinued She denies any history of GI fluid losses like diarrhea, nausea or vomiting ROS: GENERAL: No malaise, significant weight loss or fever HEENT: No changes in hearing or vision, nose bleeds or other nasal problems, NECK: No lumps, goiter, pain or significant neck swelling RESPIRATORY: No cough, wheezing or shortness of breathar CARDIOVASCULAR: No chest pain, leg swelling or palpitations GI: No abdominal discomfort, blood in stools or black stools : No dysuria, frequency or incontinence MUSCULOSKELETAL: No joint pain or swelling, back pain, or muscle pain. SKIN: No lesions, rash or itching PSYCH: No sleep disturbance, mood disorder or recent psychosocial stressors. HEMATOLOGY/LYMPHOLOGY No prolonged bleeding, easy bruisability or swollen nodes ENDOCRINE: No cold or heat intolerance, polyuria, polydipsia or goiter. NEURO: No persistent headache, syncope, seizures, weakness or numbness EXTREMITIES: No edema PAST MEDICAL HISTORY: Patient Active Problem List Diagnosis ERICK (acute kidney injury) ([facility]) CKD stage 3b, GFR 30-44 ml/min ([facility]) Solitary kidney, acquired Benign hypertension with CKD (chronic kidney disease) stage III ([facility]) Other hydronephrosis Allergic rhinitis Asymptomatic varicose veins Hypercholesterolemia Hypertension Insufficiency fracture of medial condyle of femur ([facility]) Onychomycosis Post-traumatic osteoarthritis of left knee Severe obesity (BMI 35.0-39.9) with comorbidity ([facility]) Wrist fracture Stage 3b chronic kidney disease (CKD) ([facility]) Hydronephrosis of right kidney PAST SURGICAL HISTORY: Past Surgical History: Procedure Laterality Date COLONOSCOPY 12/07/2023 PROCEDURE: HISTORICAL COLONOSCOPY; COMMENT: internal hemorrhoids HYSTERECTOMY PROCEDURE: HISTORICAL HYSTERECTOMY; COMMENT: endometriosis OTHER SURGICAL HISTORY PROCEDURE: [place] URETEROPLASTY PLASTIC OPERATION URETER; COMMENT: reimplantation of ureter SOCIAL HISTORY: Social History Tobacco Use Smoking status: Former Smokeless tobacco: Never Substance Use Topics Alcohol use: Yes FAMILY HISTORY: Family History Problem Relation Name Age of Onset Other (Other: unknown) Other parents not known Family Status Relation Name Status Other (Not Specified) Other (Not Specified) No partnership data on file MEDICATIONS: Medications Discontinued During This Encounter Medication Reason cetirizine (ZyrTEC) 10 mg tablet coenzyme Q-10 100 mg capsule labetaloL (NORMODYNE) 100 mg tablet phytonadione, vit K1, (VITAMIN K1 MISC) ACTIVE MEDICATIONS: Current Outpatient Medications Medication Sig Dispense Refill amLODIPine (NORVASC) 10 mg tablet TAKE 1 TABLET BY MOUTH EVERY DAY 90 tablet 1 cholecalciferol (VITAMIN D-3) 25 mcg (1,000 unit) tablet Take 1,000 Units by mouth. diclofenac (VOLTAREN) 1 % topical gel Apply 4 g topically 4 times daily as needed. ezetimibe (ZETIA) 10 mg tablet Take 1 Tablet by mouth daily. fluticasone propionate (FLONASE) 50 mcg/actuation nasal spray 1 [place] by Nasal route 2 times daily. GENERIC EXTERNAL MEDICATION [place] (for lung health) labetaloL (NORMODYNE) 200 mg tablet Take 2 tablets (400 mg total) by mouth 2 (two) times a day. 360each 3 MAGNESIUM ORAL Take by mouth. magnesium, amino acid chelate, 133 mg tablet Take 1 tablet (133 mg total) by mouth 2 (two) times a day. miscellaneous medical supply (Blood Pressure Cuff) misc 1 Each by Does not apply route daily. CHERYL-99 Larger blood pressure Cuff for the blood pressure monitor Received from [facility] vitamin D3-vitamin K2, MK4, 1,000-100 unit-mcg tablet Take by mouth. VITAMIN K2 ORAL Take by mouth. valsartan (DIOVAN) 40 mg tablet Take 1 tablet (40 mg total) by mouth 1 (one) time each day. 90 tablet 3 No current facility-administered medications for this visit. ALLERGIES: @ALL@ PHYSICAL EXAM: Visit Vitals BP (!) 175/75 Pulse 83 Wt 91.2 kg (201 lb) BMI 39.26 kg/m?? Smoking Status Former BSA 1.87 m?? APPEARANCE: Alert and in no acute distress par EYES: PERRLA, conjunctiva and sclera normal. EARS: External ears normal. Canals clear. NOSE/SINUS: Nares normal. Septum midline. Mucosa normal. No drainage or sinus tenderness. THROAT: no erythema or exudates NECK: Neck supple, no adenopathy, thyroid symmetric and of normal size HEART: RRR with normal S1 and S2 ,no murmurs, no gallops, no JVD appreciated LUNG: clear to auscultation ABDOMEN: Bowel sounds normoactive, no bruits, soft, non-tender, without organomegaly or palpable masses EXTREMITIES: Extremities warm and well perfused without clubbing, cyanosis, or edema NEURO: Awake, alert and oriented x 3, no focal neurological deficit, with symmetrical reflexes SKIN: Skin color, texture, turgor normal. No rashes or lesions. LABS: @lastckdlabs@ No results found for: TIBC , FE No results found for: LDH IMAGING: ASSESSMENT ar 1. CKD stage 3b, GFR 30-44 ml/min (CMS/HCC) 2. Benign hypertension with CKD (chronic kidney disease) stage III (CMS/[facility]) 3. Solitary kidney, acquired PLAN: Likely progressive CKD-presently CKD stage IIIb-in the setting of solitary kidney and hypertensive renal disease No proteinuria Right-sided hydronephrosis with nonfunctioning kidney Unclear if she has an acute component but does not have lab work since [id number] so I cannot assessthe chronicity of her CKD She could have hyperfiltration injury of the solitary left kidney Based on the last lab work she is at stage IIIb CKD Patient has baseline essential hypertension superimposed hypertension due to renal parenchymal disease. Her blood pressure is inadequately controlled. Hyperlipidemia not able to tolerate the statin I informed patient about her blood pressure control and she should have systolic less than 120 and diastolic less than 80 systolic should be less than 120 and diastolic less than 80. At the present time her blood pressure is not well-controlled We will keep the present dose of amlodipine which is the max dose of 10 mg daily Continue labetalol to 200 mg mg 2 times a day Added ARB valsartan 40 mg daily. Will increase dose slowly if patient can tolerate this medication Patient states that she had cough associated with ELEAZAR inhibitor Patient needs treatment for hypoglycemia. Will recommend LDL level less than 100. Patient said thatshe is intolerant to statins Vitamin D level is acceptable with PTH levels pending which will follow Patient has been advised to follow low-salt diet He will be seen in the office in 4 months for a follow-up Thank you Orders Placed This Encounter Procedures Creatinine BUN Electrolyte panel Protein and creatinine with ratio, urine None Regards Ajay Madrigal MD cc: No ref. provider found documented in this encounter Plan of Treatment Upcoming Encounters Date Type Department Care Team (Late st Contact Info) Description 02/06/2025 12:00 PM EDT Office Visit Adult Medicine [address] [phone] Adali Carolina MD [address] [place] [id number] 03/05/2025 4:00 PM EDT Office Visit Nephrology [address] [address] Ajay Madrigal MD [address] [facility] [address] [place] [id number] Scheduled Orders Name Type Priority Associated Diagnoses Orde r Schedule Creatinine Lab Routine CKD stage 3b, GFR 30-44 ml/min (CMS/HCC) Benign hypertension with CKD (chronic kidney disease) stage III (CMS/HCC) Solitary kidney, acquired Expected: 01/14/2025, Expires: 04/30/2025 BUN Lab Routine CKD stage 3b, GFR 30-44 ml/min (CMS/HCC) Benign hypertension with CKD (chronic kidney disease) stage III (CMS/HCC) Solitary kidney, acquired Expected: 01/14/2025, Expires: 04/30/2025 Electrolyte panel Lab Routine CKD stage 3b, GFR 30-44 ml/min (CMS/HCC) Benign hypertension with CKD (chronic kidney disease) stage III (CMS/HCC) Solitary kidney, acquired Expected: 01/14/2025, Expires: 04/30/2025 Protein and creatinine with ratio, urine Lab Routine CKD stage 3b, GFR 30-44 ml/min (CMS/HCC) Benign hypertension with CKD (chronic kidney disease) stage III (CMS/HCC) Solitary kidney, acquired Expected: 01/14/2025, Expires: 04/30/2025 documented as of this encounter Visit Diagnoses Diagnosis CKD stage 3b, GFR 30-44 ml/min (CMS/HCC)- Primary Benign hypertension with CKD (chronic kidney disease) stage III (CMS/HCC) Benign hypertensive kidney disease with chronic kidney disease stage I through stage IV, or unspecified Solitary kidney, acquired Acquired absence of kidney documented in this encounter Discontinued Medications Medication Sig Discontinue Reason Start Date End Da te cetirizine (ZyrTEC) 10 mg tablet Take 1 Tablet by mouth daily. 12/28/2023 10/23/2024 coenzyme Q-10 100 mg capsule Take 1 Capsule by mouth at bedtime. 12/28/2023 10/23/2024 labetaloL (NORMODYNE) 100 mg tablet TAKE 2 TABLETS BY MOUTH EVERY 12 HOURS 09/02/2024 10/23/2024 phytonadione, vit K1, (VITAMIN K1 MISC) 10/23/2024 documented as of this encounter Care Teams Cash Teller Relationship Specialty Start Date End Date Adali Carolina MD [address] [place] [id number] PCP - General 02/06/23 documented as of this encounter
--- OUTSIDE RECORDS SUMMARY | 2024-11-15 20:28 | XMS_ITS | Encounter Summary ---
Author Organization [facility] Address [address] [place] [address] Care Team Providers Care Brusher Name Role Phone Adali Carolina MD Primary Care Pr ovider Reason for Visit * Reason Onset Date Comments Provider Callback 10/25/2024 Encounter Details Date Type Department Care Team (Late st Contact Info) Description 10/25/2024 Telephone Adult Medicine [address] [phone] Adali Carolina MD [address] [place] [phone] Provider Callback Social History Tobacco Use Types Packs/Day Years [...] on file documented as of this encounter Progress Notes * Anna Rock RN - 10/28/2024 2:52 PM EST Called pt and notified per Dr. Carolina; The valsartan can potentially increase the potassium level but she has not used this particular medication in the past and she needs it for blood pressure control. I agree with the neuropsychologist regarding taking this medication with the labetalol and the amlodipine. Please inform the patient. We already have blood work pending for January She is in agreement with this plan. She states she has been taking the medication daily as instructed. * Adali Carolina MD - 10/28/2024 2:35 PM EST The valsartan can potentially increase the potassium level but she has not used this particular medication in the past and she needs it for blood pressure control. I agree with the neuropsychologist regarding taking this medication with the labetalol and the amlodipine. Please inform the patient. We already have blood work pending for January thanks * Max Liu - 10/25/2024 2:47 PM EST Patient came into the office stating that her Kidney doctor put her on valsartan (DIOVAN) 40 mg tablet Patient want to make sure its not in the same family that gave her a problem with her potassium.Please Advise documented in this encounter Plan of Treatment Upcoming Encounters Date Type Department Care Team (Late st Contact Info) Description 02/06/2025 12:00 PM EDT Office Visit Adult Medicine [facility] - [address] [phone] Adali Carolina MD [address] [place] [address] 03/05/2025 4:00 PM EDT Office Visit Nephrology [address] [phone] Ajay Madrigal MD [address] [phone] documented as of this encounter Visit Diagnoses Not on filedocumented in this encounter Care Teams Brusher Relationship Specialty Start Date End Date Adali Carolina MD [address] [place] [id number] PCP - General 02/06/23 documented as of this encounter
--- OUTSIDE RECORDS SUMMARY | 2024-11-15 20:28 | XMS_ITS | Encounter Summary ---
Author Organization [facility] Address [address] [place] [address] Care Team Providers Care Refrigeration Plant Cork Insulator Name Role Phone Adali Carolina MD Primary Care Pr ovider Reason for Visit * Reason Onset Date Comments requesring lab orders 10/23/2024 Encounter Details Date Type Department Care Team (Late st Contact Info) Description 10/23/2024 Telephone Adult Medicine [address] [phone] Adali Carolina MD [address] [place] [phone] requesring lab orders Social History Tobacco Use Types Packs/Day Years [...] Progress Notes * Anna Rock RN - 10/24/2024 4:36 PM EST Called pt and notified her per Dr. Carolina; Labs ordered to be completed a week prior to her appointment. She needs to be fasting for the blood work for 8 hours. She is in agreement with this plan. * Adali Carolina MD - 10/24/2024 4:31 PM EST Labs ordered to be completed a week prior to her appointment. She needs to be fasting for the bloodwork for 8 hours. Please let the patient know. Thank you * Nona Baca - 10/23/2024 4:42 PM EST Pt has an appt on 02/06/2025 and wants to know if she needs lab work prior to her appt. Pt check with the lab and no orders where put in . Pt wants a call back documented in this encounter Plan of Treatment Upcoming Encounters Date Type Department Care Team (Late st Contact Info) Description 02/06/2025 12:00 PM EDT Office Visit Adult Medicine [facility] - [address] [phone] Adali Carolina MD [address] [place] [address] 03/05/2025 4:00 PM EDT Office Visit Nephrology - [address] [phone] Ajay Madrigal MD [address] [phone] Scheduled Orders Name Type Priority Associated Diagnoses Orde r Schedule CBC and differential Lab Routine Hypercholesterolemia CKD stage 3b, GFR 30-44 ml/min (CMS/HCC) Expected: 01/21/2025, Expires: 10/24/2025 Comprehensive metabolic panel Lab Routine CKD stage 3b, GFR 30-44 ml/min (CMS/HCC) Expected: 01/21/2025, Expires: 10/24/2025 Hemoglobin A1c Lab Routine Hypercholesterolemia Expected: 01/21/2025, Expires: 10/24/2025 Lipid panel with reflex to direct LDL Lab Routine Hypercholesterolemia Expected: 01/21/2025, Expires: 10/24/2025 documented as of this encounter Visit Diagnoses Diagnosis Hypercholesterolemia- Primary Pure hypercholesterolemia CKD stage 3b, GFR 30-44 ml/min ([facility]) documented in this encounter Care Teams Refrigeration Plant Cork Insulator Relationship Specialty Start Date End Date Adali Carolina MD [address] [place] [phone] PCP - General 02/06/23 documented as of this encounter
[2024-11-15 20:46] VITALS: BP 196/76; PULSE 61; RESP 18; O2SAT 100
--- NOTE | 2024-11-15 21:49 | PC.NURSE ---
pt left prior to receiving d/c papers, did not want to wait any longer
[2024-11-16 07:20] VITALS: BP 196/76; PULSE 61; RESP 18; TEMP -17.7; TEMP 0; O2SAT 100
== END 2024-11-16 07:21 | disposition home or self-care (01) ==
PROVIDERS: Physician Assistant; Registered Nurse Emergency; Emergency Provider Emergency Medicine; PCP Family Medicine
DX: S00.93XA Contusion of unspecified part of head, initial encounter (principal); R42 Dizziness and giddiness; R51.9 Headache, unspecified; M54.2 Cervicalgia; R55 Syncope and collapse; W01.0XXA Fall on same level from slipping, tripping and stumbling without subsequent striking against object, initial encounter; Y93.9 Activity, unspecified; Y92.9 Unspecified place or not applicable; Y99.8 Other external cause status; Z79.899 Other long term (current) drug therapy
CPT/HCPCS: 36415; 70450; 72125; 80053; 84484; 85025; 85610; 93005; 99283; 99284

== ENCOUNTER → 2024-11-15 09:58 | Outpatient (BNV) | payer OTHER, SELFPAY | PROVIDERS: Emergency Provider Emergency Medicine; PCP Family Medicine; Visit Provider Internal Medicine Cardiovascular Disease | DX: R55 Syncope and collapse (principal) | CPT/HCPCS: 93010 ==

== ENCOUNTER → 2024-11-15 09:58 | Outpatient (BNV) | payer OTHER, SELFPAY | PROVIDERS: PCP Family Medicine; Visit Provider Radiology Diagnostic Radiology | DX: M50.321 Other cervical disc degeneration at C4-C5 level (principal); S00.03XA Contusion of scalp, initial encounter | CPT/HCPCS: 70450; 72125 ==